=== PATIENT | female | born 1985 | race Caucasian/White ===

== ENCOUNTER 2016-12-25 10:54 | Emergency (ER) ==
[2016-12-25 10:57] VITALS: BP 157/98; TEMP 97.8; BMI 26.6
--- NOTE | 2016-12-25 11:03 | ED.PDOC ---
General ED Provider: Dr. ESTELA JIMENEZ Chief Complaint: Tooth Problem Stated Complaint: DENTAL PAIN Time Seen by Physician: 11:00 Mode of Arrival: Walk-In Information Source: Patient Exam Limitations: No limitations Nursing and Triage Documentation Reviewed and Agree: Yes EENT Complaint Exam - Dental/Oral Complaint/Exam Mechanism of Injury: No known trauma Onset/Duration: 1 WEEK Symptoms Are: Still present Initial Severity: Moderate Current Severity: Moderate Character: Reports: Throbbing Aggravating: Reports: Heat, Cold, Chewing Alleviating: Reports: None Associated Signs and Symptoms: Denies: Swelling, Discharge, Fever, Foul odor, Foul taste in mouth Related History: Reports: Similar episode Cardiac Risk Factors: Reports: None Dental/Oral Surgical History: Reports: None Cervical Lymphadenopathy Present: No Facial Swelling Present: No Bleeding Present: No Oropharynx Findings: Absent: Clots, Active bleeding Septal Hematoma: No Foreign Body Present: No Dysphagia Present: No Drooling Present: No Asymmetrical Tonsillar Swelling Present: No Uvula Midline: Yes Brooke-tonsillar Fluctuence: No Trismus Present: No Palatal Petechiae Present: No Scarlatinaform Rash Present: No Teeth Picture: 1 - DECAY Differential Diagnoses: Dental Caries, Fractured Tooth Review of Systems - Review Of Systems Constitutional: Reports: No symptoms Eyes: Reports: No symptoms Ears, Nose, Mouth, Throat: Reports: No symptoms Respiratory: Reports: No symptoms Cardiac: Reports: No symptoms GI: Reports: No symptoms : Reports: No symptoms Musculoskeletal: Reports: No symptoms Skin: Reports: No symptoms Neurological: Reports: No symptoms Endocrine: Reports: No symptoms Hematologic/Lymphatic: Reports: No symptoms All Other Systems: Reviewed and Negative Past Medical History - Past Medical History Previously Healthy: Yes Endocrine: Reports: None Cardiovascular: Reports: None Respiratory: Reports: None Hematological: Reports: None Gastrointestinal: Reports: None Genitourinary: Reports: None Neuro/Psych: Reports: None Musculoskeletal: Reports: None Cancer: Reports: None Last Menstrual Period: december 3rd - Surgical History General Surgical History: Reports: None - Family History Family History: Reports: None - Social History Smoking Status: Current some day smoker Hx Substance Use: No Alcohol Screening: None Physical Exam - Physical Exam Appearance: Well-appearing, No pain distress, Well-nourished Eyes: WILIAM, EOMI, Conjunctiva clear ENT: Ears normal, Nose normal, Oropharynx normal Respiratory: Airway patent, Breath sounds clear, Breath sounds equal, Respirations nonlabored Cardiovascular: RRR, Pulses normal, No rub, No murmur GI/: Soft, Nontender, No masses, Bowel sounds normal, No Organomegaly Musculoskeletal: Normal strength, ROM intact, No edema, No calf tenderness Skin: Warm, Dry, Normal color Neurological: Sensation intact, Motor intact, Reflexes intact, Cranial nerves intact, Alert, Oriented Psychiatric: Affect appropriate, Mood appropriate Critical Care Note - Critical Care Note Total Time (mins): 0 Course - Course Vital Signs: Temp Pulse Resp BP Pulse Ox 12/25/16 10:54 97.8 F 80 18 157/98 H 96 Departure - Departure Time of Disposition: 11:03 Disposition: HOME SELF-CARE Discharge Problem: Toothache Instructions: Toothache (ED) Condition: Good Pt referred to PMD for follow-up: No Additional Instructions: Please call your Family Physician as soon as possible to schedule a follow-up appointment. Prescriptions: Amoxicillin 500 mg PO Q8HR #21 tablet Hydrocodone/Acetaminophen [[place] 10-325 Tablet] 1 each PO Q8HR #20 tablet Allergies/Adverse Reactions: Allergies No Known Allergies Allergy (Verified 12/25/16 10:57) Home Medications: Ambulatory Orders Amoxicillin 500 mg PO Q8HR #21 tablet 12/25/16 Hydrocodone/Acetaminophen [[place]unters 10-325 Tablet] 1 each PO Q8HR #20 tablet
== END 2016-12-25 11:19 | disposition home or self-care (01) ==
LOC: ED 10:54
DX: K08.89 Other specified disorders of teeth and supporting structures (principal); K02.7 Dental root caries; S02.5XXA Fracture of tooth (traumatic), initial encounter for closed fracture; F17.210 Nicotine dependence, cigarettes, uncomplicated
CPT/HCPCS: 99282

== ENCOUNTER 2017-07-15 13:14 | Outpatient (CLI) ==
[2017-07-15 08:42] VITALS: BMI 26.6
[2017-07-15 13:25] LABS: BASOPHILS # (AUTO) 0.1 K/uL (0-0.2); BASOPHILS % (AUTO) 0.8 % (0.0-3.0); EOSINOPHILS # (AUTO) 0.2 K/ul (0.0-0.7); EOSINOPHILS % (AUTO) 2.5 % (0.0-7.0); HEMATOCRIT 42.5 % (37.0-47.0); HEMOGLOBIN 14.7 g/dl (12.0-16.0); IMMATURE GRANULOCYTE % (AUTO) 0.4 % (0.0-5.0); LYMPHOCYTES # (AUTO) 1.9 K/uL (0.60-3.4); LYMPHOCYTES % (AUTO) 25.2 (10.0-50.0); MEAN CORPUSCULAR HEMOGLOBIN 30.8 pg (27.0-31.0); MEAN CORPUSCULAR HGB CONC 34.6 (31.8-35.4); MEAN CORPUSCULAR VOLUME 89.1 fl (81.0-99.0); MONOCYTES # (AUTO) 0.4 K/uL (0.4-2.0); MONOCYTES % (AUTO) 5.8 (0-10); NEUTROPHILS % (AUTO) 65.3; PLATELET COUNT 263 10^3/uL (140-440); RED BLOOD COUNT 4.77 10^6/ul (4.20-5.40); WHITE BLOOD COUNT 7.65 K/ul (4.6-10.2)
[2017-07-15 14:01] LABS: ACETAMINOPHEN < 3 ug/ml (10-30); ALANINE AMINOTRANSFERASE 16 U/L (12-78); ALBUMIN 3.9 g/dL (3.4-5.0); ALBUMIN/GLOBULIN RATIO 1.18; ALKALINE PHOSPHATASE 58 U/L (42-98); ANION GAP 13.2; ASPARTATE AMINO TRANSFERASE 15 U/L (15-37); BILIRUBIN,TOTAL 0.37 mg/dL (0.00-1.20); BLOOD UREA NITROGEN 20 mg/dL (7-18); BUN/CREATININE RATIO 29.85; CALCIUM 9.4 mg/dL (8.2-10.2); CARBON DIOXIDE 22 mmol/L (21-32); CHLORIDE 110 mmol/L (98-107); CHOLESTEROL 198 mg/dL (0-200); CREATININE 0.67 mg/dL (0.60-1.30); GLUCOSE 112 mg/dL (70-110); HDL CHOLESTEROL 40 mg/dL (35-80); POTASSIUM 4.2 mmol/L (3.5-5.10); SODIUM 141 mmol/L (136-145); TOTAL PROTEIN 7.2 g/dL (6.4-8.2); TRIGLYCERIDES 107 mg/dL (30-150); VLDL CHOLESTEROL 21 mg/dL (2-30)
== END 2017-07-15 13:15 | disposition home or self-care (01) ==
LOC: LAB 13:14
PROVIDERS: ATTEND Nurse Practitioner Family
DX: F11.10 Opioid abuse, uncomplicated (principal); I10 Essential (primary) hypertension
CPT/HCPCS: 36415; 80053; 80061; 80307; 84439; 84443; 85025

== ENCOUNTER 2017-11-28 12:37 | Outpatient (CLI) | END 2017-11-28 12:38 | disposition home or self-care (01) | LOC: RHC 12:37 | PROVIDERS: ATTEND Emergency Medicine | DX: F41.9 Anxiety disorder, unspecified (principal); I10 Essential (primary) hypertension | CPT/HCPCS: 36415; 84436; 84443; 84479 ==

== ENCOUNTER 2018-04-22 11:45 | Emergency (ER) ==
[2018-04-22 11:50] VITALS: BP 125/86; TEMP 98.5; BMI 27.3
[2018-04-22 12:43] LABS: URINE PREGNANCY TEST NEGATIVE (NEGATIVE)
--- NOTE | 2018-04-22 13:08 | ED.PDOC ---
General ED Provider: Dr. ESTELA JIMENEZ Chief Complaint: Weakness Stated Complaint: became anxious, had palpitation Time Seen by Physician: 11:50 (seen with nga GARCIA) Mode of Arrival: Walk-In Information Source: Patient Exam Limitations: No limitations Primary Care Provider: EDUAR CARROLL Nursing and Triage Documentation Reviewed and Agree: Yes (pt stated she is under a lot of stress) Does patient meet sepsis criteria?: No If yes, has appropriate treatment been initiated?: No System Inflammatory Response Syndrome: Not Applicable Sepsis Protocol: For patient's 13 years and over: Temp is 96.8 and below OR 101 and greater Pulse >90 BPM Resp >20/minute Acutely Altered Mental Status Are patient's symptoms suggestive of a new infection, such as: -Pneumonia -Skin, Soft Tissue -Endocarditis -UTI -Bone, Joint Infection -Implantable Device -Acute Abdominal Infection -Wound Infection -Meningitis -Blood Stream Catheter Infection -Unknown Cardiovascular Complaint Exam - Palpitations Complaint/Exam Onset/Duration: 1 hr prior to arrival Symptoms Are: Still present Timing: Constant (for 1 min) Initial Severity: Mild Current Severity: None Character: Reports: Fast, Pounding. Denies: Irregular, Skipped beats Aggravating: Reports: Rest Alleviating: Reports: Rest Associated Signs and Symptoms: Denies: Lightheadedness, Dizziness, Syncope, Chest pain, Shortness of breath, Diaphoresis, Nausea, Vomiting Related History: Similar episode (during panic attacks) Cardiac Risk Factors: Reports: Smoking Pulmonary Embolism Risk Factors: Reports: Smoking Atrial Fibrillation Risk Factors: Reports: None Thyroid Exam: Normal Quality Indicators for AMI: EKG in 10min. Quality Indicators for Cardiac Chest Pain: EKG in 10min. Quality Indicator For Non-Traumatic Chest Pain/Syncope: EKG Performed Review of Systems - Review Of Systems Constitutional: Reports: No symptoms Eyes: Reports: No symptoms Ears, Nose, Mouth, Throat: Reports: No symptoms Respiratory: Reports: No symptoms Cardiac: Reports: Palpitations GI: Reports: No symptoms : Reports: No symptoms Musculoskeletal: Reports: No symptoms Skin: Reports: No symptoms Neurological: Reports: No symptoms Endocrine: Reports: No symptoms Hematologic/Lymphatic: Reports: No symptoms All Other Systems: Reviewed and Negative Past Medical History - Past Medical History Previously Healthy: Yes Endocrine: Reports: None Cardiovascular: Reports: None Respiratory: Reports: None Hematological: Reports: None Gastrointestinal: Reports: None Genitourinary: Reports: None Neuro/Psych: Reports: None Musculoskeletal: Reports: None Cancer: Reports: None Last Menstrual Period: 2 weeks ago - Surgical History General Surgical History: Reports: None - Family History Family History: Reports: None - Social History Smoking Status: Current every day smoker Hx Substance Use: No Alcohol Screening: None - Immunizations Tetanus Shot up to Date: Yes Physical Exam - Physical Exam Appearance: Well-appearing, No pain distress, Well-nourished Eyes: WILIAM, EOMI, Conjunctiva clear ENT: Ears normal, Nose normal, Oropharynx normal Respiratory: Airway patent, Breath sounds clear, Breath sounds equal, Respirations nonlabored Cardiovascular: RRR, Pulses normal, No rub, No murmur GI/: Soft, Nontender, No masses, Bowel sounds normal, No Organomegaly Musculoskeletal: Normal strength, ROM intact, No edema, No calf tenderness Skin: Warm, Dry, Normal color Neurological: Sensation intact, Motor intact, Reflexes intact, Cranial nerves intact, Alert, Oriented Psychiatric: Affect appropriate, Mood appropriate Interpretation - Radiology Interpretation Radiology Interpretation By: Radiologist Radiology Results: No acute changes - 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 Rhythm: Sinus Ectopy: None - EKG Interpretation Rate: Normal Rhythm: Sinus Ectopy: None Roff: NL ST Segment: Normal Re-Evaluation - Re-Evaluation Time of Re-Evaluation: 13:00 (with nga present she said that she bought a new home has a new job must drive 80 miles per day back and forth between her and picking up her from work.) Status: Improved Vital Signs Stable: Yes Pain Level: 0 Appearance: NAD Lungs: Clear Skin: Warm and Dry Neuro: Alert and Oriented X3 CV: RRR - Re-Evaluation Time of Re-Evaluation: 14:00 Status: Improved Vital Signs Stable: Yes Pain Level: 0 Appearance: NAD Skin: Warm and Dry Neuro: Alert and Oriented X3 CV: RRR Critical Care Note - Critical Care Note Total Time (mins): 0 Course - Course Hematology/Chemistry: 04/22/18 12:25 04/22/18 12:25 Orders, Labs, Meds: Lab Review 04/22/18 04/22/18 04/22/18 12:14 12:25 12:25 WBC 10.52 H RBC 5.07 Hgb 15.0 Hct 44.0 MCV 86.8 MCH 29.6 MCHC 34.1 RDW Coeff of [place] 12.3 Plt Count 227 Immature Gran % (Auto) 0.3 Neut % (Auto) 78.2 Lymph % (Auto) 16.8 [place] % (Auto) 3.6 Eos % (Auto) 0.7 Baso % (Auto) 0.4 Immature Gran # (Auto) 0.0 Neut # (Auto) 8.2 H Lymph # (Auto) 1.8 [place] # (Auto) 0.4 Eos # (Auto) 0.1 Baso # (Auto) 0.0 Sodium 139.0 Potassium 4.20 Chloride 103.0 Carbon Dioxide 28.0 Anion Gap 12.20 BUN 17.0 Creatinine 0.60 Estimated GFR (MDRD) 117.00 BUN/Creatinine Ratio 28.33 Glucose 108.0 H Calcium 9.70 Total Bilirubin 0.40 AST 20.0 ALT 22.0 Alkaline Phosphatase 49.0 Total Creatine Kinase 22.0 L Troponin I < 0.010 Total Protein 8.00 Albumin 4.60 Globulin 3.40 Albumin/Globulin Ratio 1.35 TSH Free T4 Urine Test Negative Urine Opiates Screen Ur Oxycodone Screen Urine Methadone Screen Ur Propoxyphene Screen Ur Barbiturates Screen U Tricyclic Antidepress Ur Phencyclidine Scrn Ur Amphetamine Screen U Methamphetamines Scrn U Benzodiazepines Scrn Urine Cocaine Screen U Cannabinoids Screen 04/22/18 04/22/18 04/22/18 12:25 12:25 12:25 WBC RBC Hgb Hct MCV MCH MCHC RDW Coeff of [place] Plt Count Immature Gran % (Auto) Neut % (Auto) Lymph % (Auto) [place] % (Auto) Eos % (Auto) Baso % (Auto) Immature Gran # (Auto) Neut # (Auto) Lymph # (Auto) [place] # (Auto) Eos # (Auto) Baso # (Auto) Sodium Potassium Chloride Carbon Dioxide Anion Gap BUN Creatinine Estimated GFR (MDRD) BUN/Creatinine Ratio Glucose Calcium Total Bilirubin AST ALT Alkaline Phosphatase Total Creatine Kinase Troponin I Total Protein Albumin Globulin Albumin/Globulin Ratio TSH 0.734 Free T4 1.32 Urine Test Urine Opiates Screen Negative Ur Oxycodone Screen Negative Urine Methadone Screen Negative Ur Propoxyphene Screen Negative Ur Barbiturates Screen Negative U Tricyclic Antidepress Negative Ur Phencyclidine Scrn Negative Ur Amphetamine Screen Negative U Methamphetamines Scrn Negative U Benzodiazepines Scrn Negative Urine Cocaine Screen Negative U Cannabinoids Screen Negative Orders Category Date Time Status EKG-(ED ONLY) Stat CARDIO 04/22/18 12:08 Completed CBC W/ AUTO DIFF Stat LAB 04/22/18 12:25 Completed COMPREHENSIVE METABOLIC PANEL Stat LAB 04/22/18 12:25 Completed CREATINE KINASE Stat LAB 04/22/18 12:25 Completed FREE T4 (FREE THYROXINE) Stat LAB 04/22/18 12:25 Completed THYROID STIMULATING HORMONE Stat LAB 04/22/18 12:25 Completed TROPONIN I Stat LAB 04/22/18 12:25 Completed URINE DRUG SCREEN (RAPID FOR ED) [DRUG SCREEN, URINE, LAB 04/22/18 12:25 Completed RAPID] Stat URINE Stat LAB 04/22/18 12:14 Completed CHEST, 2 VIEWS PA & LAT Stat RADS 04/22/18 12:08 Completed Vital Signs: Temp Pulse Resp BP Pulse Ox 04/22/18 11:45 98.5 F 124 H 20 125/86 97 GEO Risk Score GEO Risk Score: Risk Score Odds of by 30D 0 0.1 (0.1-0.2) 1 0.3 (0.2-0.3) 2 0.4 (0.3-0.5) 3 0.7 (0.6-0.9) 4 1.2 (1.0-1.5) 5 2.2 (1.9-2.6) 6 3.0 (2.5-3.6) 7 4.8 (3.8-6.1) Departure - Departure Time of Disposition: 15:00 Disposition: HOME SELF-CARE Discharge Problem: Anxiety Instructions: Heart Palpitations (DC), Mood Disorders (ED), Anxiety (ED), Anxiolysis in Adults (ED) Condition: Good Pt referred to PMD for follow-up: Yes IPMP verified?: No Additional Instructions: Please call your Family Physician as soon as possible to schedule a follow-up appointment. Allergies/Adverse Reactions: Allergies No Known Allergies Allergy (Verified 04/09/18 12:51) Disposition Discussed With: Patient
--- NOTE | 2018-04-22 13:22 | DI ---
EXAM: Chest two views HISTORY: Palpitation COMPARISON: None TECHNIQUE: Two views of the chest were performed FINDINGS: The lungs are clear. There is no pleural effusion or pneumothorax. The heart is normal i n size. The mediastinal contour is normal. There are no acute abnormalities of the bones. IMPRESSION: No acute cardiopulmonary process.
== END 2018-04-22 13:51 | disposition home or self-care (01) ==
LOC: ED 11:45
DX: F41.9 Anxiety disorder, unspecified (principal); F17.210 Nicotine dependence, cigarettes, uncomplicated
CPT/HCPCS: 36415; 80053; 80306; 81025; 82550; 84439; 84443; 84484; 85025; 93005; 93010; 99283

== ENCOUNTER 2018-05-28 11:36 | Emergency (ER) ==
[2018-05-28 11:41] VITALS: BP 152/85; TEMP 97.5; BMI 27.0
--- NOTE | 2018-05-28 12:03 | ED.PDOC ---
General ED Provider: Dr. ISABELA BARRON Chief Complaint: Behavioral Complaint Stated Complaint: Chest tightness. Onset this AM. Feels tightness going into rt side of jaw and face. States experiences these symptoms when she becomes anxious. States called her PCP about her symptoms and was told she should come to the ER just to make sure it was not her heart. Time Seen by Physician: 11:45 Mode of Arrival: Walk-In Information Source: Patient Exam Limitations: No limitations Primary Care Provider: EDUAR CARROLL Referred to ED by: PCP Nursing and Triage Documentation Reviewed and Agree: Yes Does patient meet sepsis criteria?: No System Inflammatory Response Syndrome: Not Applicable Sepsis Protocol: For patient's 13 years and over: Temp is 96.8 and below OR 101 and greater Pulse >90 BPM Resp >20/minute Acutely Altered Mental Status Are patient's symptoms suggestive of a new infection, such as: -Pneumonia -Skin, Soft Tissue -Endocarditis -UTI -Bone, Joint Infection -Implantable Device -Acute Abdominal Infection -Wound Infection -Meningitis -Blood Stream Catheter Infection -Unknown Cardiovascular Complaint Exam - Chest Pain Complaint/Exam Onset: Gradual Duration: 2-3 hrs Symptoms Are: Resolved Timing: Intermittent Initial Severity: Moderate Current Severity: Mild Location: Reports: Upper sternal, Right anterior (into rt jaw and face) Pain Radiates: Reports: Jaw Character: Reports: Aching, Pressure Aggravating: Reports: None Alleviating: Reports: Rest Associated Signs and Symptoms: Denies: Diaphoresis, Nausea, Vomiting, Fever, Palpitations, Cough, Hemoptysis, Back pain, Abdominal pain, Dizziness, Short of air, Calf pain, Calf swelling Related History: Reports: Similar episode (was evaluated her a month ago without dx findings of her heart-was my nerves.) Related Surgical History: Reports: None History of Healthcare-Acquired Pneumonia: Reports: No AMI/ACS Risk Factors: Reports: None TAD Risk Factors: Reports: None Pulmonary Embolism Risk Factors: Reports: None Prior Care for this Complaint: Yes Recent Stress Test: No Recent Echo/LV Function: No JVD Present: No Subcutaneous Emphysema Present: No Diminshed Breath Sounds: No Reproducible Chest Wall Pain: Yes Bilateral Pulses Present: Yes Unequal Pulses Noted: No If Risk Factors for AMI/ACS Consider: EKG, Cardiac Enzymes Review of Systems - Review Of Systems Constitutional: Reports: No symptoms Eyes: Reports: No symptoms Ears, Nose, Mouth, Throat: Reports: No symptoms Respiratory: Reports: No symptoms Cardiac: Reports: No symptoms GI: Reports: No symptoms : Reports: No symptoms Musculoskeletal: Reports: No symptoms Skin: Reports: No symptoms, Dryness Neurological: Reports: Anxiety, Depressed Endocrine: Reports: No symptoms Hematologic/Lymphatic: Reports: No symptoms All Other Systems: Reviewed and Negative Past Medical History - Past Medical History Previously Healthy: Yes Endocrine: Reports: None Cardiovascular: Reports: None Respiratory: Reports: None Hematological: Reports: None Gastrointestinal: Reports: None Genitourinary: Reports: None Neuro/Psych: Reports: None, Anxiety Musculoskeletal: Reports: None Cancer: Reports: None Last Menstrual Period: few days ago - Surgical History General Surgical History: Reports: None - Family History Family History: Reports: None - Social History Smoking Status: Current every day smoker, Heavy tobacco smoker Hx Substance Use: No Alcohol Screening: None Physical Exam - Physical Exam Appearance: Well-appearing, No pain distress, Well-nourished Ill-appearing: None Pain Distress: None Eyes: WILIAM, EOMI, Conjunctiva clear ENT: Ears normal, Nose normal, Oropharynx normal Respiratory: Airway patent, Breath sounds clear, Breath sounds equal, Respirations nonlabored Cardiovascular: RRR, Pulses normal, No rub, No murmur GI/: Soft, Nontender, No masses, Bowel sounds normal, No Organomegaly Musculoskeletal: Normal strength, ROM intact, No edema, No calf tenderness Skin: Warm, Dry, Normal color Neurological: Sensation intact, Motor intact, Reflexes intact, Cranial nerves intact, Alert, Oriented Psychiatric: Anxious (affect flattened. States quit her job to stay at home- works 12 hrs per day/at home by her self) Critical Care Note - Critical Care Note Total Time (mins): 0 Course - Course Hematology/Chemistry: 05/28/18 12:05 05/28/18 12:05 Orders, Labs, Meds: Lab Review 05/28/18 05/28/18 05/28/18 12:05 12:05 12:05 WBC 9.56 RBC 5.04 Hgb 15.1 Hct 43.9 MCV 87.1 MCH 30.0 MCHC 34.4 RDW Coeff of [place] 12.4 Plt Count 240 Immature Gran % (Auto) 0.2 Neut % (Auto) 62.0 Lymph % (Auto) 29.8 [place] % (Auto) 5.4 Eos % (Auto) 1.9 Baso % (Auto) 0.7 Immature Gran # (Auto) 0.0 Neut # (Auto) 5.9 Lymph # (Auto) 2.9 [place] # (Auto) 0.5 Eos # (Auto) 0.2 Baso # (Auto) 0.1 Sodium 137.9 Potassium 4.03 Chloride 104.5 Carbon Dioxide 27.0 Anion Gap 10.43 BUN 17.1 H Creatinine 0.72 Estimated GFR (MDRD) 94.00 BUN/Creatinine Ratio 23.75 Glucose 99.9 Calcium 9.75 Total Bilirubin 0.38 AST 26.5 ALT 29.4 Alkaline Phosphatase 63.1 Total Creatine Kinase 31.8 Troponin I Total Protein 7.59 Albumin 4.65 Globulin 2.94 Albumin/Globulin Ratio 1.58 Urine Color Urine Clarity Urine pH Ur Specific [place] Urine Protein Urine Glucose (UA) Urine Ketones Urine Blood Urine Nitrite Urine Bilirubin Urine Urobilinogen Ur Leukocyte Esterase Urine Opiates Screen Negative Ur Oxycodone Screen Negative Urine Methadone Screen Negative Ur Propoxyphene Screen Negative Ur Barbiturates Screen Negative U Tricyclic Antidepress Negative Ur Phencyclidine Scrn Negative Ur Amphetamine Screen Negative U Methamphetamines Scrn Negative U Benzodiazepines Scrn Negative Urine Cocaine Screen Negative U Cannabinoids Screen Negative 05/28/18 05/28/18 12:05 12:05 WBC RBC Hgb Hct MCV MCH MCHC RDW Coeff of [place] Plt Count Immature Gran % (Auto) Neut % (Auto) Lymph % (Auto) [place] % (Auto) Eos % (Auto) Baso % (Auto) Immature Gran # (Auto) Neut # (Auto) Lymph # (Auto) [place] # (Auto) Eos # (Auto) Baso # (Auto) Sodium Potassium Chloride Carbon Dioxide Anion Gap BUN Creatinine Estimated GFR (MDRD) BUN/Creatinine Ratio Glucose Calcium Total Bilirubin AST ALT Alkaline Phosphatase Total Creatine Kinase Troponin I < 0.012 Total Protein Albumin Globulin Albumin/Globulin Ratio Urine Color Straw Urine Clarity Clear Urine pH 5.5 Ur Specific [place] <=1.005 Urine Protein Negative Urine Glucose (UA) Negative Urine Ketones Negative Urine Blood Negative Urine Nitrite Negative Urine Bilirubin Negative Urine Urobilinogen 0.2 Ur Leukocyte Esterase Negative Urine Opiates Screen Ur Oxycodone Screen Urine Methadone Screen Ur Propoxyphene Screen Ur Barbiturates Screen U Tricyclic Antidepress Ur Phencyclidine Scrn Ur Amphetamine Screen U Methamphetamines Scrn U Benzodiazepines Scrn Urine Cocaine Screen U Cannabinoids Screen Orders Category Date Time Status EKG-(ED ONLY) Stat CARDIO 05/28/18 11:53 Completed CBC W/ AUTO DIFF Stat LAB 05/28/18 12:05 Completed CMP [COMPREHENSIVE METABOLIC PANEL] Stat LAB 05/28/18 12:05 Completed CPK [CREATINE KINASE] Stat LAB 05/28/18 12:05 Completed TROPONIN I Stat LAB 05/28/18 12:05 Completed UA [URINALYSIS C & S IF INDICATED] Stat LAB 05/28/18 12:05 Completed URINE DRUG SCREEN (RAPID FOR ED) [DRUG SCREEN, URINE, LAB 05/28/18 12:05 Completed RAPID] Stat Vital Signs: Temp Pulse Resp BP Pulse Ox 05/28/18 11:37 97.5 F L 80 20 152/85 H 98 GEO Risk Score GEO Risk Score: Risk Score Odds of by 30D 0 0.1 (0.1-0.2) 1 0.3 (0.2-0.3) 2 0.4 (0.3-0.5) 3 0.7 (0.6-0.9) 4 1.2 (1.0-1.5) 5 2.2 (1.9-2.6) 6 3.0 (2.5-3.6) 7 4.8 (3.8-6.1) Departure - Departure Time of Disposition: 13:15 Disposition: HOME SELF-CARE Discharge Problem: Chest tightness or pressure, Anxiety, PCOS (polycystic ovarian syndrome), Anxiety associated with depression Instructions: Mood Disorders (ED), Anxiety (ED), Chest Pain (ED) Condition: Good Pt referred to PMD for follow-up: Yes IPMP verified?: No Additional Instructions: Take meds as directed Suggest counseling regarding stress situation Suggest re entering work force so can avoid long periods of time being at home alone Allergies/Adverse Reactions: Allergies No Known Allergies Allergy (Verified 05/28/18 11:42) Home Medications: Ambulatory Orders Buprenorphine HCl/Naloxone HCl [Suboxone 4 mg-1 mg Sl Film] 1 each SL DIRECTED 05/28/18 Disposition Discussed With: Patient
== END 2018-05-28 14:15 | disposition home or self-care (01) ==
LOC: ED 11:36
DX: R07.89 Other chest pain (principal); F41.8 Other specified anxiety disorders; E28.2 Polycystic ovarian syndrome; F17.210 Nicotine dependence, cigarettes, uncomplicated
CPT/HCPCS: 36415; 80053; 80306; 81001; 82550; 84484; 85025; 93005; 93010; 99283

== ENCOUNTER 2018-11-13 11:15 | Outpatient (CLI) | END 2018-11-13 11:16 | disposition home or self-care (01) | LOC: RHC-LAB 11:15 | PROVIDERS: ATTEND Nurse Practitioner Family | DX: I10 Essential (primary) hypertension (principal); F41.9 Anxiety disorder, unspecified; E28.2 Polycystic ovarian syndrome; R23.2 Flushing; M25.561 Pain in right knee; M25.562 Pain in left knee | CPT/HCPCS: 36415; 80053; 85025; 86038; 86430 ==